=== PATIENT | female | born 1940 | race Caucasian/White ===

== ENCOUNTER → 2016-08-25 | Outpatient (CLI) | payer MEDICARE ==
--- NOTE | ~2016-08-25 | CST ---
Cardiac Perfusion Imaging Demographics Patient Name CHRISTOS Arevalo Gender Female Patient Number [id number] Race Visit Number [id number] Ethnicity Corporate ID Room Number Accession Number [id number] Height 63 inches Date of 1940 Weight 145 pounds Age 76 year(s) BSA 1.69 m Referring Physician Charlie Henderson BMI 25.69 kg/m Interpreting Physician Keyonna DIAZ Date of study 08/25/2016 [facility] Supervising MD/MLP Charlie FOSTER Technologist Mark Pickens Ordering Physician Charlie Henderson Stress Balbir Antoine mosaic technician Stress ECG Reading Charlie Henderson Nurse Kristian Duenasy Physician Fadi Lezama The procedure was explained in detail to the patient. Risks, complications and alternative treatments were reviewed. Written consent was obtained. Medications Reviewed with Patient prior to Procedure. Procedure Procedure Type: Nuclear Stress Test:Exercise Procedure Start time: 08/25/2016 07:15 Indications: Shortness of breath. Risk Factors The patient risk factors include:former tobacco use, treated hypertension and family history of premature CAD. Conclusions Summary Perfusion Images: The overall quality of the study is good. Left ventricular cavity is noted to be normal on the stress and rest studies. There is no evidence of abnormal lung activity. The right ventricle is not visualized and cannot be assessed. Stress SPECT images demonstrate homogenous tracer distribution throughout the myocardium. Rest SPECT images demonstrate homogenous tracer distribution throughout the myocardium. Gated SPECT imaging reveals normal myocardial thickening and wall motion. The left ventricular ejection fraction was calculated to be 76%. Impression 1. Myocardial perfusion imaging is normal. 2. Overall left ventricular systolic function was normal without regional wall motion abnormalities. 3. There are no previous studies for comparison. Stress Protocols Resting ECG No ECG changes suggestive of ischemia. Resting HR:61 bpm Resting BP:132/84 mmHg Pre-stress physical exam: Patient assessed by Dr. Guerra prior to testing. Normal exam. Stress Protocol:Exercise Peak HR:150 bpm HR response: Inappropriate Peak BP:192/108 mmHg HR/BP product:[id number] Predicted HR: 145 bpm % of predicted HR: 103 Test duration:04:19 min Reason for termination:Dyspnea ECG Findings No ECG changes suggestive of ischemia. Upsloaping ST segments. Sinus tachycardia. Arrhythmias No rhythm abnormality. Symptoms Shortness of breath. Fatigue. Stress Interpretation The electrocardiographic portion of the stress test was equivocal for ischemia. Blood pressure response was normal, heart rate response was abnormal for exertion. Heart rate reached high rates very quickly with exertion with perceived dyspnea. This corresponds to a intermediate risk stress test. Will await nuclear portion. Imaging Results Summed scores - Summed stress score: 0 - Summed rest score: 0 - Summed difference score: 0 Stress ejection Ejection fraction:76 % EDV :71 ml ESV :17 ml Stroke volume :54 ml LV mass :108 gr Imaging Protocols Rest Stress Isotope:Tc99m Myoview IV Isotope: Tc99m Myoview IV Isotope dose:10.5 mCi Isotope dose:31.5 mCi Date:08/25/2016 06:15 Date:08/25/2016 07:40 Technique: SPECT Technique: Gated Supine SPECT Supine Scan Time:45-60 minutes post Scan Time:15-30 minutes post injection injection Medical History Admission Data Admission date: 08/25/2016 Admission Time: 05:53 Hospital Status: Outpatient. Signatures
== END | disposition home or self-care (01) ==
LOC: CARD 05:53
DX: R07.9 Chest pain, unspecified (principal); R06.02 Shortness of breath

== ENCOUNTER → 2016-08-26 | Outpatient (CLI) | payer MEDICARE | END | disposition home or self-care (01) | LOC: RAD.S 07:20 → PTH.S 10:15 → RAD.S 11:00 | DX: R07.9 Chest pain, unspecified (principal); R06.02 Shortness of breath; J98.09 Other diseases of bronchus, not elsewhere classified ==

== ENCOUNTER → 2016-08-29 | Outpatient (CLI) | payer MEDICARE ==
--- NOTE | ~2016-08-29 | ECH ---
Transthoracic Echocardiography Report (TTE) Demographics Patient Name SHREYA SHER Date of Study 08/29/2016 Patient Number [id number] Visit Number [id number] Date of 1940 Room Number Accession Number [id number] Gender Female Age 76 year(s) Referring Charlie Henderson Product Manufacturing Professional Margarita Wan [facility] Physician Physician Interpreting Rich Priest Pm Head Cook Physician MD Supervising Ordering Physician Charlie Henderson MD/P Nurse Stress Pin Chaser Conclusions Summary Technically adequate exam. The estimated left ventricular ejection fraction is 65%. Normal wall motion. Mild to moderate left ventricular hypertrophy. Diastolic assessment reveals Grade I diastolic dysfunction. Mild mitral regurgitation by color Doppler. The aortic root appears mildly dilated. The maximum diameter measures 3.69 cm at the sinus of valsalva. Procedure Type of Study TTE procedure:Echo Complete SF. Procedure Date Date: 08/29/2016 Start: 09:24 AM Technical Quality: Adequate visualization Indications:Shortness of breath. Additional Indications:family history of heart problems Appropriate Use Criteria: 9 Height: 63 inches Weight: 145 pounds BSA: 1.69 m Rhythm: Within normal limits HR: 66 bpm BP: 149/57 mmHg M-Mode/2D Measurements LV Diastolic Dimension: 3.45 cm LV Systolic Dimension: 1.99 cm LV Septum Diastolic: 1.26 cm LV PW Diastolic: 1.17 cm AO Root Dimension: 2.72 cm Cardiac Output: 4.38 l/min LA Dimension: 4.11 cm Cardiac Index: 2.59 l/min*m RV Diastolic Dimension: 2.86 cm LA volume index: 26 ml/m LVOT: 1.97 cm LVOT VTI: 21.76 cm RV Base: 3 cm LV Stroke volume: 66.29 ml RV Mid: 2.1 cm LV Stroke volume index: 39.22 ml/m RV Length: 7 cm TAPSE: 2 cm TDI-S': 16 cm/s Doppler Measurements AV Peak Velocity: 0.99 m/s MV Peak E-Wave: 0.61 m/s AV Peak Gradient: 3.92 mmHg MV Peak A-Wave: 0.82 m/s AV Mean Gradient: 2 mmHg MV E/A Ratio: 0.74 LVOT Peak Velocity: 0.94 m/s MV P1/2t: 64.5 msec AV Area (Continuity):3.26 cm MV Deceleration Time: 215.5 msec TR Velocity:2.3 m/s MV Area (PHT): 3.41 cm TR Gradient:21.16 mmHg PV Peak Velocity: 1.16 m/s Estimated RAP:3 mmHg PV Peak Gradient: 5.42 mmHg Estimated RVSP: 24 mmHg Estimated PASP: 24.16 mmHg E' Septal Velocity: 0.09 m/s A' Septal Velocity: 0.11 m/s E' Lateral Velocity: 0.09 m/s A' Lateral Velocity: 0.1 m/s RA Area: 11.9 cm Findings Left Ventricle The left ventricle is normal in size . Mild to moderate left ventricular hypertrophy. Diastolic assessment reveals Grade I diastolic dysfunction. Right Ventricle Normal right ventricle structure and function. Left Atrium Normal left atrial size. Right Atrium Normal right atrial size. Mitral Valve Mild thickening of the mitral valve leaflets. Mild mitral regurgitation by color Doppler. Aortic Valve Normal aortic valve structure and function. Tricuspid Valve Normal appearing tricuspid valve. Trivial tricuspid regurgitation by color Doppler. Pulmonic Valve Normal pulmonic valve structure and function. Pericardial Effusion Trivial posterior pericardial effusion. Miscellaneous The aortic root appears mildly dilated. The maximum diameter measures 3.69 cm at the sinus of valsalva. Pleural Effusion No evidence of pleural effusion. Contractility Score LV regional wall motion:(0-Non visualized 1-Normal 2-Hypokinesis 3-Akinesis 4-Dyskinesis 5-Aneurysm) Signature
== END | disposition home or self-care (01) ==
LOC: CARD 09:00
DX: R07.9 Chest pain, unspecified (principal); I51.7 Cardiomegaly; I34.0 Nonrheumatic mitral (valve) insufficiency